=== PATIENT | male | born 1950 | race Caucasian/White ===

== ENCOUNTER 2023-03-12 14:34 | Outpatient (AMB) | payer MEDICARE, MEDICAID, SELFPAY ==
--- NOTE | 2023-03-12 14:42 | MHC.OFFVIS ---
Intake Vital Signs 03/12/23 14:50 Height 5 ft 7 in Weight 168 lb BMI 26.3 BP 122/70 Blood Pressure Location Rt brachial Position Sitting Respiration 17 Pulse 72 Pulse Source Pulse Oximeter Pulse Oximetry (%) 96 Oxygen Delivery Method Room Air Intake Visit Reasons: E-EXPLORATION GEOLOGIST: Cognitive Disorder-Confirmed Intake Note: Pt presents to the office for a new pt evaluation for cognitive disorder. Sales Agent Pest Control Service Required: No Allergies No Known Allergies Allergy (Verified 03/12/23 14:45) Medication List - Last Reconciled 03/12/23 by Corry Washburn MD atovaquone (Mepron) 750 mg PO Q8H cefuroxime axetil 500 mg PO Q12H cholecalciferol (vitamin D3) 125 mcg PO DAILY levothyroxine 25 mcg PO DAILY HPI HPI Comments History of Present Illness Details 73y/o male comes for evaluation of cognitive disorder. He is accompanied by Asha Shaw - his Health care proxy who helps with history. In 2020 he was diagnosed with Lyme disease- he had generalized weakness, difficulty walking, cognitive issues and started feeling unwell. He sees Raul coughlin EXPLORATION GEOLOGIST for Lyme disease and is on cefuroxime and mepron now. His cognition has improved with antibiotics. In September 2022 he was admitted at [facility] for Pneumonia, COVID, ? aspiration pneumonia. He was in ICU and send home with IV antibiotics.. He has episodes of emotional outbursts . He has trouble controlling his laughter , also has crying episodes. It is very difficult to obtain a good history .He lives alone but has help form his ex employees. Asha helps with his medications, finances .Since 2021 he had difficulty handling his finances. I reviewed his notes , there was 1 episode of altered mental status - sitting in the bathroom with a space heater on a high setting He had a tele appointment with a neurologist who recommended EEG LP. Not sure if he had it. He also has anxiety. He denies hallucinations or delusions. Through out the visit Asha says they dont want to start any medications even though patient was Ok with . 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 Social History (Updated 03/12/23 @ 14:59 by Veronica Tripathi CMA) Household Members: None Housing: House Alcohol intake: never Patient Tobacco Use Status: Never used Tobacco Physical Exam Vital Signs: Last Vital Signs Pulse 72 03/12/23 14:50 Resp 17 03/12/23 14:50 BP 122/70 03/12/23 14:50 Pulse Ox 96 03/12/23 14:50 Oxygen Delivery Method Room Air 03/12/23 14:50 BMI result Body Mass Index 26.3 Const General: cooperative and anxious Nutritional Appearance: average body habitus Orientation/consciousness: patient oriented x3 Eyes Pupils: Equal, round and reactive pupils present Neuro General: patient oriented x3, tone normal and moves all extremities Cranial nerves: Yes Facial sensation intact/muscles of mastication intact, Yes Equal, round and reactive pupils present, Yes Bilaterally intact EOM present, Yes Nystagmus not present and Yes Normal facial strength present Gait exam (Neuro): Antalgic gait present Motor exam (neuro): 5/5 motor strength present throughout Deep tendon reflexes (DTR's): Right triceps reflex intensity grade: 1+, Left triceps reflex intensity grade: 1+, Rt Biceps (C5, C6): 1+, Left biceps reflex intensity grade: 1+, Right brachioradialis reflex intensity grade: 1+, Left brachioradialis reflex intensity grade: 1+, Right patellar reflex intensity grade: 1+ and Left patellar reflex intensity grade: 1+ Coordination: [id number] test normal Orientation What is the (year) (season) (date) (day) (month)?: year, season, date, day and month Where are we (state) (county) (town or city) (hospital) (floor)?: state, county, town or city and hospital/clinic Registration Name of 3 unrelated objects clearly and slowly, then ask patient to repeat all 3 of them. (1st repeat determines score. Make sure they can repeat all three): object 1, object 2 and object 3 Attention & Calculation (CHOOSE ONE) Spell WORLD backwards (DLROW): 5 letters Recall Ask patient to repeat the 3 items from question #3.: object 1 Language Show patient a wristwatch & ask what it is. Repeat for pencil.: watch and pencil Ask the patient to repeat the phrase 'No ifs, ands, or buts' after you.: correct Ask the patient to 'take a piece of paper with their right hand' 'fold paper in half' 'place paper on floor': take paper in right hand, fold paper in half and place paper on floor Print the sentence 'CLOSE YOUR EYES' on a piece. If patient actually closes eyes then score.: followed written direction Give patient a blank piece of paper & ask to write a sentence. Score if it contains a noun & verb.: sentence contains subject and verb Ask patient to copy figure of intersecting pentagons exactly. Score if all 10 angles & 2 intersects are included.: all 10 angles present & 2 are intersected Score Score: 27 Assessment & Plan Assessment & Plan (1) Cognitive disorder: Comment: ? Lyme ? 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 EEG - patient will be scheduled continue treatment for Lyme Disease - his cognitive disorder is likely related to lyme. 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
[2023-03-12 14:50] VITALS: BP 122/70; PULSE 72; RESP 17; O2SAT 96; BMI 26.3
== END 2023-03-12 15:56 | disposition home or self-care (01) ==
PROVIDERS: PCP Nurse Practitioner Family; Referring Provider Nurse Practitioner Family; Visit Provider Psychiatry & Neurology Neurology
DX: R41.89 Other symptoms and signs involving cognitive functions and awareness (principal); A69.20 Lyme disease, unspecified; F07.9 Unspecified personality and behavioral disorder due to known physiological condition
CPT/HCPCS: 99204

== ENCOUNTER → 2023-03-12 14:34 | Outpatient (BNVA) | payer MEDICARE, MEDICAID, SELFPAY | PROVIDERS: PCP Nurse Practitioner Family; Referring Provider Nurse Practitioner Family; Visit Provider Psychiatry & Neurology Neurology | DX: F09 Unspecified mental disorder due to known physiological condition (principal); F07.9 Unspecified personality and behavioral disorder due to known physiological condition | CPT/HCPCS: 99202 ==

== ENCOUNTER 2023-03-26 12:58 | Outpatient (REF) | payer MEDICARE, MEDICAID, SELFPAY ==
--- NOTE | 2023-03-26 13:05 | EEG_ITS ---
This is a 16-channel EEG with an EKG lead. Patient is reported awake during the tracing. Background EEG rhythm is 7-8 hertz 5-50 microvolt posteriorly, lower amplitude fast anteriorly. Photic stimulation does not produce any significant driving. Hyperventilation is not performed. Cardiac lead does not reveal any significant abnormality. Some lead and muscle artifacts are noted. No sharp wave spikes or paroxysmal tendency noted. IMPRESSION: Mild slowing with no evidence of seizure disorder. MD GURMEET Johnston/ESTUARDO / [id number]
== END 2023-03-26 12:59 | disposition home or self-care (01) ==
LOC: HO.NEURO 12:58
PROVIDERS: Visit Provider Psychiatry & Neurology Neurology
DX: F09 Unspecified mental disorder due to known physiological condition (principal); F07.9 Unspecified personality and behavioral disorder due to known physiological condition
CPT/HCPCS: 95816